=== PATIENT | male | born 1940 | race Caucasian/White ===

== ENCOUNTER 2019-06-28 14:36 | Inpatient (IN) | payer OTHER ==
[~2019-06-28] VITALS: Ht 182.9 cm; Wt 77.8 kg
--- NOTE | ~2019-06-28 | EMS ---
[facility] [address] [place] [address] EMS Patient Care Report Name: SAMANTA PEARSON Room #: 522B-B ADM IN M.R.#: [id number] Admission: 06/28/19 Attend Phys: Power Salgado DO Discharge: Date of : 38 Report #: [id number] THIS REPORT FOR: //name// Report Transmitted: 06/28/2019 20:45 EMS Care Summary [facility] MED-ACT Incident [id number] @ 06/28/2019 13:48 Incident Location [address] [place] [address] Patient SAMANTA PEARSON Male, 79 Years 1940 Patient Address [address] [place] [address] Patient History Dementia,Diabetes,Hypertension,Chronic Kidney Disease, Patient Allergies No known allergies, Patient Medications Valsartan, Levofloxacin, Atorvastatin, Aspirin, Glimepiride, Chief Complaint "He was agitated with staff" Disposition Transported No Lights/[place] Dispatch Reason Psychiatric Problem/Abnormal Behavior/Suicide Attempt Transported To [facility] Narrative Medic 1134 is dispatched for a C2 Behavioral stage for PD. Upon arrival pt is found standing outside of building talking with staff. Staff reports that this [facility] [address] [place] [address] EMS Patient Care Report Name: SAMANTA PEARSON Room #: 522B-B ADM IN M.R.#: [id number] Admission: 06/28/19 Attend Phys: Power Salgado DO Discharge: Date of : 39 Report #: [id number] is the pt's first day here and that he came around 1230 hrs today. Staff reports that the pt became aggressive toward them and that he "took an ipad and through it at out feet". Staff reports that they also talked with the pt's and that the reports that the pt started "treating her like a soldier". Staff reports that they have talked with the geriatric psychiatric unit at [facility] and that they have agreed to see the pt but that they have no safe means of transporting the pt there due to his potential to be violent and thus PD was called. Pt is standing with staff with arms crossed and is alert and tracking EMS. Pt gives avoidant answers to most questions and EMS and PD has conversation with pt about the need to go the hospital to be assessed. Pt is alert to person only and staff states that he has history of dementia. Staff member Emily Cerrato talks with pt and pt agrees to walk to unit and be transferred to [facility]. Due to pt report with Emily Cerrato she agrees to ride with EMS. Pt finally agrees to allow his VS to be assessed. BG not assessed due to worry of further upsetting pt. Biocom with no orders received. Pt is continuously monitored en route. Pt is transferred to ER bed via walking. Report to RN. Care transferred. Initial Vitals @14:22P: 121,R: 16,BP: 165/99,GCS: 14,SpO2: 94,Revised Trauma: 12, @14:27P: 121,R: 16,BP: 167/92,GCS: 14,SpO2: 95,Revised Trauma: 12, Assessments @13:56MENTAL:Confused,Person Oriented,SKIN:HEENT:LUNG SOUNDS:ABDOMEN:PELVIS//GI:EXTREMITIES:Left Arm: No Abnormalities,Right Arm: No Abnormalities,Left Leg: No Abnormalities,Right Leg: No Abnormalities,PULSE:NEURO: Impression Behavioral/psychiatric episode Procedures @13:56ALS AssessmentResponse: UnchangedSucceeded Timeline 13:47,Call Received 13:47,Psap Call 13:48,Dispatched 13:49,En Route 13:54,On Scene 13:55,At Patient 13:56,ALS Assessment,Response: UnchangedSucceeded, 14:21,Depart Scene 14:22,BP: 165/99 M,PULSE: 121,RR: 16 R,SPO2: 94 Ox,ETCO2: ,BG: ,PAIN: ,GCS: 14, 14:27,BP: 167/92 M,PULSE: 121,RR: 16 R,SPO2: 95 Ox,ETCO2: ,BG: ,PAIN: ,GCS: 14, 14:34,At Destination [address] [address] EMS Patient Care Report Name: SAMANTA PEARSON Room #: 522B-B ADM IN M.R.#: [id number] Admission: 06/28/19 Attend Phys: Power Salgado DO Discharge: Date of : 38 Report #: [id number] 14:47,Call Closed Disclaimer v1.1 Copyright 2019 [employer] This EMS Care Summary contains data elements from the applicable legal record (which may be displayed differently). It is designed to provide pertinent information for the following purposes: continuity of care, clinical quality, and state data reporting. The complete legal record is available to ED staff and administrators of the receiving hospital in [employer]'s Patient Tracker. All data is provided "as is."
[2019-06-28 14:36] VITALS: BP 166/84
[~2019-06-28 14:36] MED LIST: ALEVE220 M1; ASA81BEC PO; DIOVAN 80 MG TA80 M1 PO; LIPITOR10 MG PO; VITAMIN D1000 UNIT PO
[2019-06-28 15:34] LABS: URINE BILIRUBIN NEGATIVE (Negative); URINE BLOOD 3+ (Negative); URINE CLARITY CLEAR; URINE COLOR YELLOW; URINE GLUCOSE-RANDOM* 3+ (Negative); URINE KETONES NEGATIVE (Negative); URINE LEUKOCYTES-REFLEX NEGATIVE (Negative); URINE NITRITE-REFLEX NEGATIVE (Negative); URINE PROTEIN (DIPSTICK) 1+ (Negative); URINE UROBILINOGEN 0.2 E.U./dl (0.2-1.0)
[2019-06-28 15:41] LABS: BACTERIA-REFLEX None Seen /HPF (None Seen); CASTS None Seen /LPF (None Seen); CRYSTALS None Seen /LPF (None Seen); SQUAMOUS None Seen /LPF (0-3); URINE RBC 3-10 Few /HPF (0-2); URINE WBC-REFLEX 0-5 Rare /HPF (0-5)
[2019-06-28 15:47] LABS: HEMATOCRIT 44.3 % (42.0-52.0); HEMOGLOBIN 14.8 gm/dL (14.0-18.0); MCH 31.7 pg (26.0-34.0); MCHC 33.3 g/dL (28.0-37.0); MCV 95.1 fL (80.0-100.0); RBC 4.66 mil/uL (4.50-6.00); RDW 13.8 % (10.5-14.5); WBC 9.9 thou/uL (4.0-11.0)
[2019-06-28 15:56] LABS: CALCIUM 9.3 mg/dL (8.5-10.1); CREATININE 1.8 mg/dL (0.7-1.3); POTASSIUM 3.8 mmol/L (3.5-5.1)
[2019-06-28] MEDS ORDERED: AMARYL2 MG PO (16:00)
[2019-06-28 16:02] LABS: ALBUMIN 4.1 g/dL (3.4-5.0); TOTAL BILIRUBIN 0.5 mg/dL (<0.1-1.0); TOTAL PROTEIN 7.8 g/dL (6.4-8.2)
[2019-06-28 17:01] VITALS: BP 150/81
--- NOTE | 2019-06-28 18:44 | NUR ---
WHITE MALE ADMITTED FROM ER FROM [facility]. HE WAS LIVING WITH HIS AT HOME. SHE WAS OUT OF CONTROL WITH HIS , SHE COULD NOT HANDLE HIM ANY LONGER. SHE TOOK HIM TO THE PRISON THIS MORNING. THE NURSE WHO HAD HIM TODAY (CHEL FELIX) STATED HE WAS THROWING THINGS AT THE STAFF, SHE COULD NOT COMPLETE THE SKIN ASSESSMENT, NO ONE COULD COME CLOSE ENOUGH TO HIM TO DO ANYTHING. HE WAS A POOR HISTORIAN AND UNABLE TO ANSWER MANY OF THE QUESTIONS. 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 HE DOES NOT HAVE ANY SKIN ISSUES AT THIS TIME. HE BECAME AGITATED EASILY AND WALKED TO THE THE DOOR LAND KICKED IT BECAUSE IT WAS NOT UNLOCKED. DR. SWANSON ORDERED GEODON 15 MG IM. THIS WAS GIVEN TO HIM. SECURITY ARRIVED AND HELPED STAFF TAKE PT. TO HIS ROOM. AFTER ABOUT 15 MINUTES PT. WAS ABLE TO WALK ONTO THE UNIT AND BE CALM. SECURITY LEFT AT THAT TIME. HE WEARS GLASSES AND HEARING AIDES. HIS BELT, MONEY CLIP, SHOE LACES, WATCH, HAT. HE HAS A GOLD COLORED RING ON HIS LEFT HAND (WEDDING RING). THE MONEY AND HIS DRIVERS LICENSE WAS SENT TO SECURITY. HIS , KEARA, IS HIS DPOA. HE STATED HE GREW UP IN THE [facility], BUT HE DENIES GOING TO THAT EPISCOPALIAN ANY LONGER.
--- NOTE | 2019-06-29 06:07 | NUR ---
1909-Report received from day shift nurse. He was pacing the hallways rapidly with security present at this time, and had received an IM from nurse before report. On assessement he was talking with non-sensical words, wandered into others rooms for awhile, with a carney affect and non-compliant with redirections mostly. He was redirected further and continually then he did sit down in the day room and fell asleep in the chair. Thus the IM was effective. He talked in word salad later when he awakened, shown his room, noted with much confusion, and slept most of the night then. He awakened once and walked to the hallway waving at staff and started to wander into others rooms/lost, but was redirected by staff and went back to his room and asleep.
[2019-06-29 06:18] LABS: HEMATOCRIT 43.1 % (42.0-52.0); HEMOGLOBIN 14.4 gm/dL (14.0-18.0); MCH 31.9 pg (26.0-34.0); MCHC 33.3 g/dL (28.0-37.0); MCV 95.6 fL (80.0-100.0); RBC 4.51 mil/uL (4.50-6.00); RDW 13.7 % (10.5-14.5); WBC 8.1 thou/uL (4.0-11.0)
[2019-06-29 06:34] LABS: CREATININE 1.5 mg/dL (0.7-1.3); MAGNESIUM 1.8 mg/dL (1.8-2.4); PHOSPHORUS 3.2 mg/dL (2.5-4.9)
[2019-06-29 07:30] VITALS: BP 155/86
--- NOTE | 2019-06-29 07:45 | NUR ---
PT SITTING IN DINNING ROOM. PT ORIENTED TO SELF, HOSPITAL, NOT DATE OR MONTH. PT STATED HE WOULD BE GUESSING. PT LUNGS CEAR. PT UP AD MAIDA IN [place].
[2019-06-29 08:31] LABS: TSH 1.578 uIU/mL (0.358-3.740)
[2019-06-29 08:34] VITALS: BP 155/86
--- NOTE | 2019-06-29 10:00 | NUR ---
PT WAS UP AT DESK. PT WANTING TO TALK TO . PT ALREADY TALKED TO ON PHONE AND PT DENIES HE TALKED TO HER, SHE WAS UPSET ON THE PHONE.
--- NOTE | 2019-06-29 11:00 | NUR ---
PT REFUSED BLOOD SUGAR CHECK.
--- NOTE | 2019-06-29 12:18 | NUR ---
CHECKED BLOOD SUGAR. PT 281. PT REFUSED TO EAT LUNCH STATED HE WANTED TO HAVE LUNCH WITH . LET PT KNOW THAT ITS NOT VISITING HOUR TIME. PT WANTED THIS NURSE TO EAT HIS LUNCH.
--- NOTE | 2019-06-29 14:05 | NUR ---
PT RESISTING TAKING ZYPREXIA. PT PUT PILL IN CUP OF WATER.
--- NOTE | 2019-06-29 14:10 | NUR ---
PT RECIEVED ZYPREXIA 5MG IM TO RT DELTOID WITH SECURITY PRESENT.
--- NOTE | 2019-06-29 17:18 | NUR ---
PT ALLOWED THIS NURSE TO GIVE INSULIN. PT HAS BEEN WANDERING AROUND THE UNIT AND GOING INTO OTHERS ROOMS.
[2019-06-29 20:13] VITALS: BP 159/84
--- NOTE | 2019-06-29 23:25 | NUR ---
ASSUMED CARE OF THE PT AT 191 PM. ALERT ET ORIENTED X 1. WALKS WITH A STEADY GAIT. IS CONTINENT OF URINE. HEART RATE REGULAR, LUNGS CLEAR BILATERALLY, RESP., EVEN, AND UNLABORED. +BS HEARD IN ALL 4 QUADRANTS. ABD SOFT ET NONTENDOR. +PP BILATERALLY. THE PT KEEPS GOING INTO OTHER PEOPLE'S ROOMS THIS EVENING AND NIGHT. HE HAS BEEN REDIRECTED BACK TO HIS ROOM SEVERAL TIMES. MEDICATED WITH GEODON 10 MG IM TO THE LEFT DELTOID FOR AGITATION. TOOK ALL OF HIS HS MEDICATIONS. REMAINS ON 12 MINUTE CHECKS FOR HIS SAFETY.
[2019-06-30 00:07] LABS: GLYCOHEMOGLOBIN (HGB A1C) 8.9 % (4.8-5.6)
--- NOTE | 2019-06-30 01:04 | NUR ---
THE PT WAS WALKING INTO OTHER PT'S ROOMS AND SITTING ON EMPTY BEDS ACROSS FROM THE OTHER PT'S BED. REDIRECTED THE PT TO BED, CALLED THE N.P. GRATED CHEESE MAKER WHO ORDERED TRAZADONE 50 MG PO PRN AT HS, WHICH WAS GIVEN ORDERED. BED ALARM WAS PLACED, THE PT KEPT CALLING OUT FOR HIS EARLIER IN THE EVENING.
--- NOTE | 2019-06-30 08:47 | NUR ---
PATIENT AWOKEN AT 0730 TO ADMINISTER 0700 AM MEDICATIONS. AWOKEN, PLEASANTLY CONFUSED. ABLE TO AMBULATE TO BATHROOM INDEPENDENTLY. STATED HAD GOOD NIGHT. COMPLIANT WITH BLOOD SUGARS - 138 THIS MORNING. NO INSULIN NEEDED. CALM THIS MORNING. NO AGITATION OR AGGRESSION NOTED. RESPONSIVE SLOWLY TO QUESTIONS ADDRESSED TO HIM. DOZED OFF IN CHAIR AFTER BREAKFAST IN DINING [place].
[2019-06-30 12:10] LABS: HEMATOCRIT 45.1 % (42.0-52.0); HEMOGLOBIN 14.8 gm/dL (14.0-18.0); MCH 31.3 pg (26.0-34.0); MCHC 32.8 g/dL (28.0-37.0); MCV 95.6 fL (80.0-100.0); RBC 4.72 mil/uL (4.50-6.00); RDW 14.1 % (10.5-14.5); WBC 9.5 thou/uL (4.0-11.0)
[2019-06-30 12:37] LABS: CALCIUM 9.5 mg/dL (8.5-10.1); CREATININE 1.8 mg/dL (0.7-1.3); MAGNESIUM 1.9 mg/dL (1.8-2.4); PHOSPHORUS 2.6 mg/dL (2.5-4.9)
--- NOTE | 2019-06-30 13:39 | NUR ---
SW spoke with pt's spouse Silvia [phone] to complete SW assesment. [facility] is [facility] once [facility]. SW will send reports on Wednesday as updates and provided pt's spouse with support and encoaurged communication. [facility] [phone].
[2019-06-30 13:48] LABS: POTASSIUM 4.4 mmol/L (3.5-5.1)
[2019-07-01 02:52] VITALS: BP 159/84
--- NOTE | 2019-07-01 04:44 | NUR ---
PACING AND RESTLESS. WHEN REDIRECTED, HITS, GRABS STAFF AND BECOMES VIOLENT. @ 22:47, [id number] HCL 25 MG GIVEN X 1 . PATIENT NOT ALLOWED PENS, PENCILS FOR PHONE CALL TO D/T VERBAL AGRESSION WITH FAMILY. AMBULATES WITHOUT A A WALKER. PRN GIVEN FOR AGRESSION AND VIOLENCE WITH STAFF.
[2019-07-01 05:39] LABS: HEMATOCRIT 40.9 % (42.0-52.0); HEMOGLOBIN 13.5 gm/dL (14.0-18.0); MCH 31.3 pg (26.0-34.0); MCV 94.8 fL (80.0-100.0); RBC 4.31 mil/uL (4.50-6.00); RDW 13.9 % (10.5-14.5); WBC 7.2 thou/uL (4.0-11.0)
[2019-07-01 05:56] LABS: CREATININE 1.6 mg/dL (0.7-1.3); MAGNESIUM 1.9 mg/dL (1.8-2.4); PHOSPHORUS 4.1 mg/dL (2.5-4.9); POTASSIUM 3.5 mmol/L (3.5-5.1)
--- NOTE | 2019-07-01 06:48 | NUR ---
SLEPT 4.8
--- NOTE | 2019-07-01 09:55 | NUR ---
PATIENT WAS VERY SEDATED THIS MORNING - EVENTUALLY AROUSED AND CAME OUT FOR BREAKFAST. PATIENT APPEARED MORE CONFUSED AND LESS RESPONSIVE TO QUESTIONS ADDRESSED TO HIM. HAD TO BE REDIRECTED TO EAT HIS MEAL. MEDICATION COMPLIANT. BLOOD SUGAR WAS 145 NOT REQUIRING INSULIN. ADVISED STAFF NEEDED STOOL SPECIMEN FOR BLOOD OCCULT. LABS SHOWED DECREASE IN RBC - HGB AND HCT OVER LAST THREE DAYS. PATIENT AFFECT FLAT AND MOOD UNRESPONSIVE.
--- NOTE | 2019-07-01 12:01 | EKG ---
[place] [address] [facility] [place] [address] ELECTROCARDIOGRAM REPORT Name: SAMANTA PEARSON Room #: 52[facility] ADM IN M.R.#: [id number] Admission: 06/28/19 Attend Phys: Power Salgado DO Discharge: Date of : 38 Report #: [id number] THIS REPORT FOR: //name// [facility] Test Date: 2019-07-01 Test Time: 08:50:18 Pat Name: SAMANTA OCONNORERS Department: Room: [facility] Gender: M Mc Kay Machine Operator: PATRICK : 1940 Requested By: Yoana Landrum Order Number: [id number] MD: Tayo Ulrich Measurements Intervals [place] Rate: 82 P: 27 VT: 146 QRS: -28 QRSD: 113 T: 105 QT: 395 QTc: 462 Interpretive Statements Sinus rhythm LVH with IVCD and secondary repol abnrm Compared to ECG 03/12/2014 13:24:11 ST segment abnormality is now present Electronically Signed On 07-01-2019 12:00:54 CDT by Tayo Ulrich [email or web address] <ELECTRONICALLY SIGNED> By: Tayo Ulrich MD, [facility] 07/01/19 1200 0850 0850 Tayo Ulrich MD, [facility] /EPI
[2019-07-01 19:31] VITALS: BP 149/99
[2019-07-02 09:48] VITALS: BP 121/76
--- NOTE | 2019-07-02 10:57 | H ---
[facility] [place] [address] [address] [place] [address] HISTORY AND PHYSICAL Name: SAMANTA PEARSON Room #: 522B-B ADM IN M.R.#: [id number] Admission: 06/28/19 Attend Phys: Power Salgado DO Discharge: Date of : 39 Report #: [id number] THIS REPORT FOR: //name// CC: Power Salgado Cody Francis DATE OF SERVICE: 06/28/2019 INPATIENT PSYCHIATRIC EVALUATION ATTENDING PHYSICIAN: Power Salgado DO ELECTRIC SERVICEMAN: Yoana Landrum MD REASON FOR ADMISSION: Brought by EMS from failed admission at [facility] today. He has a history of Alzheimer's dementia and became combative disorderly with the placement. HISTORY OF PRESENT ILLNESS: This is an 79-year-old male who was admitted to the Senior Behavioral Health Unit through the Emergency Room at [facility]. The patient was medically cleared in the ED. The patient has known major neurocognitive disorder due to Alzheimer's disease. This was initially diagnosed in November 2016 by his primary care physician. The patient has significant dementia. It is delusional. Also, presents with a mixed type aphasia, so communication and reliability of the information remains highly questionable. He and his , Silvia who I spoke with, number is [phone]. The patient had become even more increasingly difficult over the last month, irritable, agitated, throwing objects as well such as electronics and cell phones. She did not feel safe living with him. He was frequently eloping. She was using his cell phone to track where he was going and then "coaxes him home" when he got worn out. At this point in time, the patient is essentially not performing any of his instrumental activities of daily living. The patient himself has no particular complaints, wants to leave. Denied having problems. Denied recent fall, head injury, facial droop or any neurological deficits. It should be noted that a number of the features of progressive Alzheimer disease can mimic that of strokes. I spoke with his over the telephone in the ED and had him on Senior Behavioral Health Unit. She is in favor of the admission. She states she has DPOA and has not had a chance to review the paperwork myself, but it was supposed to be received from [facility]. Nonetheless, I judged the patient's situation to be of an emergent nature, so we will sort out the details in the morning. The states she and her live in a condominium, is in gross denial of the disease. In addition, he has stage III chronic renal failure as well as diabetes mellitus, which is suboptimally controlled as his ER blood sugar was 399. [facility] [address] [place] [address] HISTORY AND PHYSICAL Name: SAMANTA PEARSON Room #: 522B-B ADM IN M.R.#: [id number] Admission: 06/28/19 Attend Phys: Power Salgado DO Discharge: Date of : 38 Report #: [id number] OCCUPATIONAL HISTORY: The patient retired 10 years ago. 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 EDUCATIONAL HISTORY: Bachelor's degree in [employer] in real estate. He has a biological son from a prior relationship, named Lázaro and cecy named Migue. Cecy who he is actually close with. The patient does not have a history of service. Did not have history of alcohol, tobacco or illicit drug use. PRIMARY CARE PHYSICIAN: Dr. Francis. He had previously been treated with Trulicity, because it was injectable, did not comply with it, currently treated with glimepiride and Tradjenta. FAMILY HISTORY: The patient's mother on her family history had dementia, in 1981, at that time according to the . MEDICAL HISTORY: Hypertension, diet-controlled diabetes mellitus. It is not diet controlled, it is poorly controlled with medication at present. Lithiasis, stones in his bladder ? he has refused treatment for. PAST SURGICAL HISTORY: Laparoscopic cholecystectomy. CURRENT MEDICATIONS: Valsartan 80 mg daily. We do not have this in formulary, so it was converted to losartan 50 mg daily. Atorvastatin 10 mg p.o. daily, glimepiride 2 mg p.o. daily, aspirin 81 mg p.o. daily, cholecalciferol or vitamin D3 ordered 5000 International Units daily. We are not going to give him any naproxen because of his renal disease. ALLERGIES: No known allergies. VITAL SIGNS: In the ER, BP 166/84, pulse ox 96%, pulse 116, respirations 14, weight 81.873 kilos. Physical exam grossly normal. LABORATORY DATA: Electrolytes; sodium 141, potassium 3.8, chloride 103, bicarbonate 25, BUN 22, creatinine 1.8, estimated GFR 36, glucose 399. Repeat glucose was 293, calcium 9.3, total bilirubin 0.5, AST 15, ALT 31, alkaline phosphatase 73, total protein 7.8, albumin 4.1. White count is 9.9, H and H 14.8 and 44.3, platelet count 224,000. UDS showed 1+ protein, 3+ blood, 3+ glucose. CT scan of the brain was done, which showed gross atrophy consistent with Alzheimer disease, no bleed or acute abnormalities noted read by Dr. Lam. Chest x-ray was negative. I went ahead and had the ED physician gave him 500 mL of normal saline bolus as well as insulin in the ER. I spoke with the . She is uncomfortable visiting with the patient at this point. I offered her family meeting later in the admission and she will think about that. MUSCULOSKELETAL: Normal gait and station. [facility] [address] [place] [address] HISTORY AND PHYSICAL Name: SAMANTA PEARSON Room #: 522B-B ADM IN [facility].#: [id number] Admission: 06/28/19 Attend Phys: Power Salgado, Discharge: Date of : 38 Report #: [id number] MENTAL STATUS EXAMINATION: This is a well-developed, fairly nourished white male, wearing glasses and hat. Attention limited. Concentration limited. Speech is normal rate. Thought process is linear, focused on her thought content, focused on her ideations that he needs to leave, not understanding the purpose of hospitalization. Memory known to be impaired. Insight impaired. Judgment impaired. Denied SI or HI. Some helplessness. Denied hopelessness. Denied suicidal intent, homicidal intent or plan though communication with him is difficult. REVIEW OF SYSTEMS: Cannot be comprehensively done due to his cognitive and speech impairment. FORMULATION: An 79-year-old male brought in for failed admission and combativeness at half-way. DIAGNOSES: Major neurocognitive disorder due to Alzheimer disease with behavioral disturbance. ADDITIONAL DIAGNOSES: 1. Diabetes mellitus, presently poor control. 2. Hypertension. 3. Lithiasis in the bladder. PLAN: The patient is admitted officially under Kellie Wong to the Senior Behavioral Health Unit at [facility]. A 50 mg IM Geodon injection was given emergently as he was trying to act out, repeatedly kicking the door, would not redirect. Public safety was called to take him back to his room. In addition noted losartan 50 mg p.o. daily, glimepiride 2 mg p.o. daily, vitamin D 5000 International Units p.o. daily, atorvastatin 10 mg p.o. daily, aspirin 81 mg p.o. daily. My colleague, Ms. Sandoval has ordered 25 mg chlorpromazine q. 4 hours p.r.n. IM, 25 mg q. 4 hours p.r.n. p.o. Other house PRNs were ordered. ESTIMATED LENGTH OF STAY: 10-14 days. Time spent on interview, review of records, coordination and care, acute management with him on the unit was at least 60 minutes. <ELECTRONICALLY SIGNED> By: Power Salgado DO 07/02/19 1057 26 37 Power Salgado DO /nt
--- NOTE | 2019-07-02 18:15 | NUR ---
0715 Pt. sitting at side of bed very lethargic leaning toward his right side. Garbled, rambling speech. Fiberglass Model Maker equal but weak. Pupils equal. Obeys commands after encouragement. Occassional slight jerking movements in extremities that stop when slight pressure applied. Ambulated to dining room with slow, shuffling gait with assistance. Took medications without diff but ate very little breakfast. Sitting upright in dining room with flat affect. No lispro insulin d/t BG of 93. Mouth very dry. Color pink with brisk capillary refill and palpable peripheral pulses. No s/o respiratory distress. Active bowel sounds over soft abdomen. called for update. 1000 Dr. Landrum here assessing patient. Becoming more awake but still quiet. Speech clearer. 1230 Fed lunch by GOVERNMENT RELATIONS MANAGER. More alert. Cooperative with care. No s/o distress. Obeying simple commands. 1430 Walking around unit and sitting in dining room. Much more alert. Dr. Salgado in unit. Notified of no BM since . Mag Citrate ordered. Patient took 3 sips and then poured it on himself. Ambulated back to room and changed clothes. Incontinent of urine in briefs. 1730 Dr. Landrum notied of BG per her request. Decreased glargine insulin to 7 units. Supposatory given per order. Up walking around unit without s/o distress.
[2019-07-02 20:09] VITALS: BP 116/66
--- NOTE | 2019-07-03 04:36 | NUR ---
PATIENT UP IN COMMON AREA THE FIRST OF THE SHIFT. DENIES PAIN. VERY HARD TO UNDERSTAND AT TIMES HE MUMBLES AND WORDS ARE GARBLED. UP WITH ASSIST TO BED. TRIED TO GET UP SEVERAL TIMES SETTING OFF THE ALARM. GAVE TRAZODONE TO HELP SLEEP. ACCUCHECK WAS 141, RECEIVED 6 UNITS OF LISPRO INSULIN. NO SIGNS OF AGGITATION. NEEDS REDIRECTED SEVERAL TIMES, EASILY REDIRECTED.
[2019-07-03 05:06] LABS: ABSOLUTE NEUTROPHILS 7.4 thou/uL (1.4-8.2); BASOPHILS 0.4 % (0.0-2.0); EOSINOPHILS 0.1 % (0.0-3.0); HEMATOCRIT 43.6 % (42.0-52.0); HEMOGLOBIN 14.4 gm/dL (14.0-18.0); LYMPHOCYTES 8.9 % (24.0-44.0); MCH 31.5 pg (26.0-34.0); MCV 95.3 fL (80.0-100.0); MONOCYTES 7.6 % (1.0-8.0); PLATELET COUNT 201 thou/uL (150-400); RBC 4.58 mil/uL (4.50-6.00); RDW 14.1 % (10.5-14.5); WBC 8.9 thou/uL (4.0-11.0)
[2019-07-03 05:34] LABS: ALBUMIN 3.5 g/dL (3.4-5.0); CALCIUM 9.6 mg/dL (8.5-10.1); CREATININE 1.6 mg/dL (0.7-1.3); MAGNESIUM 2.2 mg/dL (1.8-2.4); PHOSPHORUS 4.3 mg/dL (2.5-4.9); POTASSIUM 4.9 mmol/L (3.5-5.1); TOTAL BILIRUBIN 0.6 mg/dL (<0.1-1.0); TOTAL PROTEIN 6.8 g/dL (6.4-8.2)
[2019-07-03 07:47] VITALS: BP 125/70
--- NOTE | 2019-07-03 09:38 | NUR ---
0715: Report rec from [facility] shift, care assumed. [id number]: Ambulatory independently, wanders in halls, slightly resistant to re-direction, feeds self with stand by assist, takes meds whole w/o difficulty. Glucose finger stick 110, no SS Lispro Insulin indicated. Rec call from Silvia (), update given, plans to visit this a.m. New orders from Dr. Landrum noted.
--- NOTE | 2019-07-03 22:51 | NUR ---
ASSUMED CARE OF THE PT AT 1914 PM. ALERT ET ORIENTED X 1-2. THE PT HAS BEEN WALKING AROUND THE UNIT, WHEN THIS DATABASE ADMINISTRATION ASSOCIATE CAME ON DUTY, THE PT WAS STANDING IN A CHAIR, IT TOOK SEVERAL STAFF TO GET THE PT OUT OF THE CHAIR. CALLED THE PHYSICIAN PUBLIC HEALTH SANITARIAN, WHO MADE THE PT A 1;1 FOR HIS SAFETY. HEART RATE REGULAR, LUNGS CLEAR BILATERALLY, RESP., EVEN, AND UNLABORED. +BS HEARD IN ALL 4 QUADRANTS. ABD SOFT ET NONTENDOR. +PP BILATERALLY. UNABLE TO ASSESS IF HE HAS ANY DEPRESSION, OR ANXIETY AT THIS TIME.
--- NOTE | 2019-07-03 23:52 | NUR ---
THE PT WAS HITTING STAFF, CALLING STAFF NAMES, STATING, "YOU BITCH!" MEDICATED THE PT WITH 5MG OF ZYPREXA IM TO HIS RIGHT DELTOID. REMAINS ON 1:1 FOR HIS SAFETY.
[2019-07-04 05:28] LABS: CALCIUM 9.2 mg/dL (8.5-10.1); CREATININE 1.6 mg/dL (0.7-1.3)
[2019-07-04 05:43] LABS: POTASSIUM 3.8 mmol/L (3.5-5.1)
[2019-07-04 07:45] VITALS: BP 154/85
--- NOTE | 2019-07-04 07:45 | NUR ---
PT HAS 1:1 AT THIS TIME FOR SAFETY. PT RESTING IN BED WITH HEAD ELEVATED. NO BEHAVIORS SEEN.
--- NOTE | 2019-07-04 09:07 | NUR ---
PT SLEEPING AT THIS TIME. NO ISSUES.
[2019-07-04 09:48] VITALS: BP 154/85
--- NOTE | 2019-07-04 11:05 | NUR ---
PT UP NOW, CECE IS HERE FOR MEETING. PT IN BATHROOM WITH STAFF. PT INCON. OF URINE. PT WALKING SLOW.
--- NOTE | 2019-07-04 11:48 | NUR ---
PT SITTING IN DINNING ROOM. PT TOOK MEDS WITHOUT ISSUES. ENCOURAGE PT TO DRINK WATER.
--- NOTE | 2019-07-04 13:00 | NUR ---
PT LAYED DOWN AFTER LUNCH TO REST.
[2019-07-04 19:36] VITALS: BP 131/60
--- NOTE | 2019-07-05 05:02 | NUR ---
1914-Report received from day shift nurse and care assumed. Alexi was sitting in the day room with peers and staff, was quietly watching television also. He walked to his room afterwards. He was talked with and assessed in his room. He talked with non-sensical word structures mostly. Understood words he began saying were "I want to go", You're giving me too many meds. and shots", "It's poison". His medicines were offered and he said these sentences. He was talked with further about his treatment, his good progress, and he continued talking in a calm manner. He was compliant with his sliding scale insulin dose though. He talked with word salad mostly. He slept for several hours, awakened in the night and sat in his room chair after talking with staff, then went back to sleep. He awakened again and calmly asked for milk and water. He asked then "where is room 522" and shown to him and he returned again to sleep.
[2019-07-05 06:47] LABS: CALCIUM 9.4 mg/dL (8.5-10.1); CREATININE 1.6 mg/dL (0.7-1.3)
[2019-07-05 07:59] VITALS: BP 144/88
[2019-07-05 08:30] VITALS: BP 144/88
--- NOTE | 2019-07-05 08:30 | NUR ---
PT IN DINNING ROOM NOW. PT EATING BREAKFAST. PT ABLE TO FEED SELF. PT STATED HE FEELS LIKE HE IS GETTING BETTER. PT GAIT STEADIER. PT DENIES ANY ISSUES. PT NOT REFUSING MEDS THIS AM.
--- NOTE | 2019-07-05 14:11 | NUR ---
Date of Admission: 06/28/19 Date of Activity Therapy Assessment: 07/01/19 Activity Goal: Initial Goal: Weekly progress towards goal: Did not achieve goals Group participation level: Needs some assistance Behaviors observed: Patient has been present for 1/2 groups since admission d/t wandering and behaviors. Patient has been ordered to have a 1:1 sitter over the last few days and has been in bed sleeping much of the time. Patient has since become more alert and may be able to participate in one to one. Plan: No change towards goal. Provide one to one leisure opportunities as needed.
--- NOTE | 2019-07-05 15:47 | NUR ---
PT COMING UP TO DESK AND WANTING HIS SHOES BECAUSE HE SAID HE WALKS ALOT. PT ALSO WANTING HIS CAR KEYS SAYING HE IS READY TO DRIVE 30MILES.
--- NOTE | 2019-07-05 17:00 | NUR ---
PT EASILY RE-DIRECTED, PT UP AT NURSES DOOR AND WANTING TO TALK TO NURSE. PT ABLE TO RE-DIRECT TO DINNING ROOM FOR NURSE TO SPEAK WITH HIM. STATED THAT HE THOUGHT HE WAS IN [place].
[2019-07-05 19:16] VITALS: BP 158/76
[2019-07-05 19:51] VITALS: BP 152/69
[2019-07-05 21:38] VITALS: BP 129/75
--- NOTE | 2019-07-06 05:10 | NUR ---
1909-Report given and care assumed. Alexi was pacing the unit, asked staff repeating questions, confused about where his room was, said appropriate short sentences calmly and socializing with staff at the shift start. He sat in the day room and watched television and was medication compliant with pills whole with water. Accucheck = 110, and he had sliding scale insulin and an HS snack. At 2215 he started to being more restless and said he was going to go to [facility] [place], [place] and said "let's go". He tried locked doors and the exit door with force also. Redirections were tried to help re-direct him, he replied "No, I'm going" for example. He went into others rooms also. He was offered Trazodone prn for a sleep aide but he said "no, no". His exit-seeking and door banging continued and he began being defiant with redirections. Olanzapine 2.5 mg. IM was given at 2244. He became less agitated so it was effective. He was more directable and calmer talking with short sentences, and was having insomnia however at 0100 and he was given Trazodone 25 mg. po at that time. It was effective as he fell asleep and continued with bed alarm on. He awakened and toileted twice in the nite, urinating, and was appropriate and polite, and he returned to sleeping soundly again.
[2019-07-06 08:00] VITALS: BP 113/87
--- NOTE | 2019-07-06 10:41 | NUR ---
assumed pt care report received from nurse. pt found in room sitting at bedside , vs being takne. vs stable. on ra. accucheck. insulin given. subcut vit b12 shot given. pt tolorated well. no other complaint. pt participated in group. will continue to monitor
--- NOTE | 2019-07-06 12:30 | NUR ---
Nutrition: Assessed for early weekend LOS on [facility]. Met in day area, but pt hard of hearing. Admitted for cognitive disorder. On a renal diet, with PMH of CKD stage 3, DM II, and HTN. He is on phosphate binders (calcium acetate); last phos WNL on 07/03 at 4.3 mg/dl. Eating very well with 100% meal intake per the last 6 consecutive meals. BGs of 117, 328 mg/dl today. On 7 units Lantus and Humalog SSI. Pt denies any appetite or nutrition concerns on interview. He denies any wt loss. RD informed pt of healthy wt status; BMI 24.5. Given pt ordered on phos binders, will not recommend liberalizing diet at this time as potential for hx hyperphosphatemia in the past. Pt also voices he is very happy with and liking the food. Keep as low nutrition risk.
[2019-07-06 19:48] VITALS: BP 155/91
--- NOTE | 2019-07-07 02:09 | NUR ---
PATIENT HAS BEEN UP WANDERING AIMLESSLY THRU THE HALLWAYS WHEN I CAME ON SHIFT AT 1900. HE WAS SITTING ALONE IN THE DINING ROOM WHEN I APPROACHED HIM TO GIVE HIS HS MEDS AND INSULIN. AFTER EXPLAINING WHAT I WAS GIVING HIM, HE REFUSED TO TAKE THEM. HIS B/P WAS 155/91. HIS GLUCOSE WAS 199. I WAS ABLE TO GET THE INSULIN INJECTION OF 10UNITS LISPRO SQ GIVEN. PATIENT WAS STILL AGITATED AND THREW WATER AT THIS NURSE. ANOTHER NURSE LATER TRIED TO GIVE HIM HIS MEDS AND AGAIN HE REFUSED AND THREW WATER. DR MCKENNA CALLED AND OLANZAPINE 5MG IM ORDERED AND GIVEN WITH HELP OF 2 SECURITY OFFICERS. PATIENT STILL WOULD NOT STAY IN BED LONG AND HAS BEEN UP WALKING THE HALLS. HE DID SIT IN DINING ROOM FOR 30 MINUTES AND SLEEP. FINALLY PATIENT ALLOWED THIS NURSE TO TAKE HIM TO HIS ROOM AND ASSIST HIM GETTING INTO BED. HE WAS AT THE POINT THAT HE COULD NOT HARDLY TALK, HE WAS SO SLEEPY. PATIENT ASLEEP AT THIS TIME. BED ALARM ON AND BED IN LOW POSITION. PATIENT DID SWING AND HIT THIS NURSE IN THE ABDOMEN AT ONE POINT WHILE TRYING TO REDIRECT HIM. PATIENT STILL HAS WORD SALAD GOING WHEN HE TRIES TO TALK OR HAVE A CONVERSATION. HE IS A/0 X 1. HE CONTINUES TO WANDER INTO OTHER PATIENT'S ROOMS ALSO. WILL CONTINUE TO MONITOR.
[2019-07-07 02:20] VITALS: BP 155/91
[2019-07-07 07:40] VITALS: BP 124/53
--- NOTE | 2019-07-07 15:12 | NUR ---
PATIENT ALERT AND ORIENTED TO SELF AND IN DAY ROOM MOST OF THE DAY. SPOUSE VISITED THIS AM DURING VISITING HOURS. PATIENT UPSET THAT HE CAN'T BE DISCHARGED TODAY AND WILL PACE HALLWAYS AND HAS VERY SHORT ATTENTION SPAN. PATIENT ENCOURAGED TO READ NEWSPAPER AND PICKS UP PAPER, THEN PUTS IN BACK ON TABLE. PATIENT WILL SIT AND NAP WHILE IN DAYROOM. PATIENT WILL TAKE CRUSHED MEDS IN PUDDING OR APPLESAUCE.
--- NOTE | 2019-07-07 19:32 | NUR ---
PATIENT REFUSED HIS EVENING MEDS AND WAS GIVEN IM MEDS PER DR SWANSON. PATIENT PACING AND AGITATED AND GOING TO DOORS ATTEMPTING TO LEAVE UNIT.
[2019-07-07 20:00] VITALS: BP 148/81
--- NOTE | 2019-07-07 22:45 | NUR ---
1899-Report received from day shift staff. Alexi was given IM medications just prior to report. He continued wandering the unit and into other rooms and pushing on the exit door handles. He was aggressive with staff trying to redirect the pt. as he swung at staff repeatively. He was restless and anxious and said No, when asked if he wanted to go into his room. He refused his HS medications when offered them, shaking his head No and turning away. He was observed responding to internal stimuli also picking at items in the air and seen mumbling to unseen others also. Redirections were tried but he continued aggression so he was given Olanzapine 2.5 mg. IM at 1944. At 2229 it was effective and he was tired after sitting in the day room, and was cooperative with assistance going to his room/bed and lying down and then went to sleep then without aggression. He was compliant with the sliding scale insulin at for blood suger reading = 144. No c.o. pain.
--- NOTE | 2019-07-08 06:30 | NUR ---
Alexi slept very soundly this nite snoring soflty after going to sleep, was awakened to change wet linens and brief in the nite however. He was calm, and groggy.
[2019-07-08 09:16] VITALS: BP 146/84
--- NOTE | 2019-07-08 18:26 | NUR ---
CONFUSED AND DIFFICULT TO UNDERSTAND SPEECH. FAIR APPETITE FOR MEALS. ATE ALL MEALS IN DINNING ROOM. FLAT AFFECT. DOES NOT VISIT WITH OTHERS IN DINNING ROOM. SLOW STEADY GAIT. TOOK MEDICATIONS WHOLE WITHOUT DIFFICULTY.
[2019-07-08 19:40] VITALS: BP 146/84
--- NOTE | 2019-07-08 21:43 | NUR ---
ASSUMED CARE OF THE PT AT 1915PM. ALERT ET ORIENTED X 2. THE PT WALKS WITH A STEADY GAIT. HEART RATE REGULAR, LUNGS CLEAR BILATERALLY, RESP., EVEN, AND UNLABORED. +BS HEARD IN ALL 4 QUADRANTS. ABD SOFT ET NONTENDOR. DENIES PAIN AT THIS TIME. THE PT WAS WALKING AROUND INTO DIFFERENT ROOMS. THE PT TOOK HIS HS MEDICATIONS EARLIER IN THE SHIFT. THE PT WAS GIVEN ZYPREXA 2.5 MG IM GIVEN IN HIS LEFT DELTOID. REMAINS ON 12 MINUTE CHECKS FOR HIS SAFETY.
--- NOTE | 2019-07-09 01:24 | NUR ---
THE PT KEPT TRYING TO GET OUT OF BED, ASSISTED THE PT TO THE DAYROOM, MEDICATED THE PT WITH PRN TRAZADONE, HE FELL ASLEEP IN THE DAYROOM IN THE RECLINING CHAIR. REMAINS ON 12 MINUTE CHECKS FOR HIS SAFETY.
[2019-07-09 07:10] VITALS: BP 117/67
--- NOTE | 2019-07-09 12:40 | NUR ---
0700: Report rec from noc shift, care assumed. [id number]: Ambulatory independently to DR, gait slow/steady. Alert, oriented to name only, cooperative with staff at this time, easily re-directs and follows instructions. Feeds self, appetite good, takes meds and insulin w/o difficulty. Slept through 0900 therapy group, easily arouses to verbal and tactile stimuli. [id number]: here for visit, update given.
[2019-07-09 19:31] VITALS: BP 131/55
--- NOTE | 2019-07-09 23:03 | NUR ---
ASSUMED CARE OF THE PT AT 191 PM. ALERT TO NAME ONLY, WALKS WITH A STEADY GAIT. HEART RATE REGULAR, LUNG CLEAR BILATERALLY. RESP., EVEN, AND UNLABORED. +BS HEARD IN ALL 4 QUADRANTS. ABD SOFT ET FLAT TOO TOUCH. THE PT IS CONTINENT OF URINE. WEARS A BRIEF DURING THE DAY. THE PT HAD VOIDED IN THE DAYROOM. THE PT WAS CLEANED UP AND WAS TEMPTED TO BE REDIRECTED TO THE CHAIR IN THE DAYROOM. HE SLEPT IN IT FOR A FEW HOURS, THEN HE GOT UP AND WAS WANDERING INTO OTHER PT'S ROOMS. THE PT EVENTUALLY WENT TO HIS ROOM AND WENT TO BED. REMAINS ON 12 MINUTE CHECKS FOR THE PT'S SAFETY.
[2019-07-10 09:03] LABS: CALCIUM 8.8 mg/dL (8.5-10.1); CREATININE 1.6 mg/dL (0.7-1.3)
[2019-07-10 09:38] VITALS: BP 112/70
--- NOTE | 2019-07-10 11:16 | NUR ---
Family meeting scheduled for 10:00 on July 13
--- NOTE | 2019-07-10 14:53 | NUR ---
0710: Report rec from noc shift, care assumed. [id number]: Ambulatory independently to DR, sitting quietly at DR table, alert, oreinted to name only. Feeds self, appetite good, takes meds whole w/o difficulty, compliant with tx and medication plan. Mood is quiet, pleasant, cooperative with staff. Slept through 0900 therapy group. 1100: Silvia here for visit, pt visits appropriately, pt calm and cooperative. [id number]: Pt sitting quietly in DR, visits with other pts, no aggression noted. 1500: Pt observed pacing in christopher, and to nurses desk, no aggressive behavior noted.
[2019-07-10 20:15] VITALS: BP 153/77
[2019-07-10 20:47] VITALS: BP 153/77
--- NOTE | 2019-07-11 00:33 | NUR ---
PATIENT APPEARS CALMER TONITE. HE CONTINUES TO WALK AROUND THE UNIT AND PACE. HE HAS BONDED WITH ANOTHER MALE PATIENT AND THE TWO UNDERSTAND EACH OTHER THRU THEIR DEMENTIA. THEY BOTH THINK THEY ARE WORKING HERE AND HELPING OUT IN THEIR MINDS. PATIENT TOOK HIS MEDS TONITE WITHOUT A FIGHT. HE ATE ICECREAM WITH THEM TO HELP THE WHOLE ONES GO DOWN. HIS GLUCOSE CHECK WAS 98 SO NO REGULAR INSULIN WAS NEEDED AT HS. PATIENT HAS BEEN PLEASANT. HE STILL HAS EXPRESSIVE APHASIA BUT USUALLY HE CAN COMMUNICATE HIS NEED TO US IN A WAY WE UNDERSTAND. PATIENT IS CONTINENT OF BOWEL AND BLADDER. HE DOES WEAR DISPOSABLE BRIEFS. HE SOMETIMES DOESN'T MAKE IT TO THE BATHROOM IN TIME. PATIENT SLEPT IN THE DINING ROOM FOR A BIT AND I WOKE HIM TO SHOW HIM TO HIS ROOM. HE IS SLEEPING SOUNDLY AND BED IS IN LOW POSITION AND BED ALARM IS ON.
--- NOTE | 2019-07-11 08:27 | HC ---
[facility] [place] [address] CONSULTATION Name: MICHELSAMANTA Shala Room #: 522B-B ADM IN M.R.#: [id number] Admission: 06/28/19 Attend Phys: Power Salgado DO Discharge: Date of : 38 Report #: [id number] THIS REPORT FOR: //name// CC: Power Francis DATE OF SERVICE: 06/28/2019 MEDICAL CONSULT CONSULT REQUESTED BY: Dr. Power Salgado, and geropsychiatrist PRIMARY CARE PHYSICIAN: Dr. Cody Francis. REASON FOR CONSULTATION: Medical management for diabetes, hypertension and chronic kidney disease stage 3. HISTORY OF PRESENT ILLNESS: The patient is a very pleasant 79-year-old lean and thin gentleman who has been ambulating in the unit very restless and wants to leave as he informs me that he does not like to be here, so wants me to open the door. Informed the patient that Dr. Salgado is the incharge and he can discuss it with him. The patient seems to process it reasonably okay, informs me that he is very healthy. He does not have any complaints and he is perfectly fine. REVIEW OF SYSTEMS: Completely negative. The patient does complain of polydipsia and polyuria. He informs me that he always has dry mouth and he is extremely thirsty, but otherwise does not have any other complaints. Denies any chest pain, abdominal pain, nausea, vomiting, diarrhea, hematochezia, melena or constipation. The patient denies any shortness of breath or dizziness or lightheadedness. PAST MEDICAL HISTORY: Significant for: 1. Diabetes mellitus type 2. 2. Hypertension. 3. Hyperlipidemia. 4. Chronic kidney disease stage 3. 5. Cognitive impairment and dementia. 6. Chronic constipation. 7. History of bladder calculus. 8. History of benign colonic polyps. 9. Chronic hematuria. 10. Insomnia. 11. Recurrent urinary tract infections. 12. Benign prostatic hypertrophy. PAST SURGICAL HISTORY: [facility] [address] [place] [address] CONSULTATION Name: SAMANTA PEARSON Room #: 522B-B [facility].#: [id number] Admission: 06/28/19 Attend Phys: Power Salgado DO Discharge: Date of : 38 Report #: [id number] 1. The patient has had cholecystectomy. 2. Colonoscopy in 12/2012. FAMILY HISTORY: Positive for hypertension and CVA. SOCIAL HISTORY: The patient denies any tobacco or alcohol. He informs me he is a lifetime nonsmoker. He does drink a lot of caffeine. He is and currently has been in a senior care. The patient's emergency contact is Silvia, his current [phone]. ALLERGIES: The patient has no known drug allergies. CURRENT MEDICATIONS: Losartan, Lipitor, Amaryl, aspirin, Namenda. REVIEW OF SYSTEMS: Please see HPI above. PHYSICAL EXAMINATION: VITAL SIGNS: Temperature, the patient is afebrile; heart rate 116; respiration 14; blood pressure 166/84; pulse oximetry 96% on room air when he presented to the ER. At the time of examination, the patient had heart rate of 79, respirations 15, blood pressure 150/81, pulse oximetry 97% on room air. GENERAL: Alert, oriented to time, place and person, very pleasant, lean and thin, tall 79-year-old gentleman who appears his stated age and is restless and anxious. HEENT: Normocephalic, atraumatic. Pupils equally round, reactive to light. Conjunctivae clear. Sclerae nonicteric. Oropharynx clear. Mucous membranes moist. NECK: Supple, no JVD, no lymphadenopathy. HEART: S1, S2 regular. No murmur, no S3, no S4. LUNGS: Clear to auscultation bilaterally without any crackles or wheezes. ABDOMEN: Soft, nontender, nondistended, normal active bowel sounds. EXTREMITIES: No edema. NEUROLOGIC: Completely nonfocal. LABORATORY DATA AND X-RAYS: WBC 9.9, hemoglobin 14.8, hematocrit 44.3, platelets 224 and the differential is within normal limits. Chemistry: Sodium 141, potassium 3.8, chloride 103, bicarbonate 25, BUN 22, creatinine 1.8 and GFR 36. Urinalysis with 3+ blood, 1+ protein, ketone negative, and nitrite negative, leukocyte esterase negative, large glucose. CT scan of the head was done in the Emergency Room and no acute process and chest x-ray showed no acute process. ASSESSMENT AND PLAN: 1. Dementia with agitation. 2. Depression. 3. Diabetes mellitus type 2. [address] [address] CONSULTATION Name: SAMANTA PEARSON Room #: 522B-B ADM IN ..#: [id number] Admission: 06/28/19 Attend Phys: Power Salgado, DO Discharge: Date of : 38 Report #: [id number] 4. Hypertension. 5. Chronic kidney disease stage 3. 6. Hyperlipidemia. 7. The patient has advanced directives. 8. DNR. 9. DVT prophylaxis with heparin. GI prophylaxis with Pepcid renal dose. PLAN: 1. The patient has been admitted to the Geropsych Unit for dementia with agitation. We will go ahead and do Accu-Cheks q.i.d. a.c. and at bedtime and at [id number] dose sliding scale insulin as sugars have been high on admission. 2. UA without any infection. We will go ahead and check urine postvoid residual one time as the patient does have a history of benign prostatic hypertrophy. 3. Heparin for DVT prophylaxis and renal dose Pepcid. 4. Resume his home medication of the thyroid. 5. Chronic kidney disease stage 3. We will avoid any nephrotoxic agents. 6. Hypertension. We will write for hydralazine p.r.n. in addition to starting his home medications. Plan of care was discussed with the patient, RN as well as Dr. Salgado. <ELECTRONICALLY SIGNED> By: Yoana Landrum MD 07/11/19 0827 [id number] Yoana Landrum MD /nt
[2019-07-11 12:37] VITALS: BP 127/72
--- NOTE | 2019-07-11 12:48 | NUR ---
ASSUMED CARE AT 0700 THIS MORNING. PT. CONTINUES TO BE CONFUSED. HE IS ORIENTED TIMES 1-2. HE SITS ON THE PERIPHERAL OF GROUP BUT UNABLE TO PARTICIPATE. IS EATING ON THE UNIT. TOOK HIS MEDS WHOLE WITHOUT DIFFICULTY. HE IS NOT VERBALIZING SI/HI OR AVH TODAY. WAS HERE AT 10:45 THIS MORNING. HE WAS SMILING WHEN HE SAW HER AND SAT NEXT TO HER THE WHOLE TIME SHE WAS HERE.
--- NOTE | 2019-07-11 14:50 | NUR ---
FARM MACHINERY ENGINE MECHANIC arrived to day room after hearing the panic alarm sound. MARINE OILER informed FARM MACHINERY ENGINE MECHANIC that this patient had become agitated and began to pull alarm. She was unable to direct him for a period of time, but patient eventually relocated from area. FARM MACHINERY ENGINE MECHANIC then witnessed patient approaching the panic alarm once again. MARINE OILER blocked alarm while FARM MACHINERY ENGINE MECHANIC attempted to verbal redirect patient away. Patient stated became increasingly agitated, verbalizing that he needed to, "get to the damn alarm", as he used force to push MARINE OILER away with one arm, grabbing wrist of FARM MACHINERY ENGINE MECHANIC with another. Patient then grabbed ahold of alarm and removed entire cover and screws from the wall. MARINE OILER able to successfully remove cover and screws from patient. At that time RN and Dr. Salgado removed patient from day room and assisted him to his bedroom.
--- NOTE | 2019-07-12 03:59 | NUR ---
1909-Report received from day shift nurse and care assumed. Alexi was walking around the unit hallways and day area, with head down mostly, notably responding to hallucinations at times. He was compliant with VS and accucheck and was sitting down in the day area. His medications were taken to him and he had word salad sentences, understood was him saying "I had a DrPenny and this and so on". He was given his HS medicaitons and he threw them acroos the room. He had given information then that the ordered an IM backup if he refused the Zyprexa medication. The medication Zyprexa was again brought to him and exxplained the reality of the situation and talked with him about current events. He was noted walking into others rooms then. The IM backup ordered of Zyprexa 5 mg. IM was given to him at 2052. He later was walked to his bed and has since slept well, awakening once thus far and needed to urinate, then returned to bed and he was thanking staff.
[2019-07-12 08:57] VITALS: BP 117/60
[2019-07-12 10:05] VITALS: BP 117/60
--- NOTE | 2019-07-12 10:34 | NUR ---
ASSUMED CARE AT 0700 THIS MORNING. PT. ON THE UNIT, DRESSED. ATE WELL FOR BREAKFAST. ASKED IF HE COULD REFUSE MEDICATIONS. THIS RN STATED HE COULD BUT THE HAS ORDERED AN IM IF HE REFUSES. HE THEN TOOK HIS MEDICATIONS WITHOUT PROBLEMS. HE SAT ON THE PERIPHERY OF THE MORNING GROUP, BUT NOTED LITTLE TO NO PARTICIPATION FROM HIM. NO ACTING OUT BEHAVIORS NOTED SO FAR THIS MORNING. NO NOTICE OF SI/HI OR AVH THIS MORNING. ORIENTED TIMES 1 OR 2.
--- NOTE | 2019-07-12 14:58 | NUR ---
Date of Admission: 06/28/19 Date of Activity Therapy Assessment: 07/01/19 Activity Goal: Decrease restlessness and wandering Initial Goal: 1 Group activity/day Weekly progress towards goal: On track Group participation level: Minimal Behaviors observed: Patient's participation varies based on attention level. Patient wanders frequently and is hard to redirect/refocus. When patient is present in groups he participates minimally if at all. Plan: No change towards goal
[2019-07-12 19:53] VITALS: BP 136/70
[2019-07-12 22:26] VITALS: BP 136/70
--- NOTE | 2019-07-13 05:14 | NUR ---
ASSESSEMNT: PT REMAIN ALERT AND ORIENT TIMES TWO. PT REMAIN CALM THIS SHIFT AND APPEARED TO WANT TO BE COOPERATIVE. DID NOT RECEIVE IM ZYPREXIA. OCCULT STOOL PENDING. VSS.. WILL CONTINUE TO MONITOR. WILL CONTINUE TO MONITOR. SLOW PROGRESSS TOWARDS DC GOALS.
[2019-07-13 09:27] VITALS: BP 112/74
--- NOTE | 2019-07-13 11:01 | NUR ---
Nutrition followup: Pt continues on renal diet with 75-100% of meals/snacks documented on renal diet. Labs/meds noted. A1C 8.9, BG 130-189. Noted initially on carb controlled diet order but not at present. May consider adding carb controlled. Pt also on mechanical chopped diet for mild dysphagia. Not oriented for interview but nsg reports no nutrition concerns. Did note most recent weight reflects an 8# decline from admit if accurate. REC re-weight pt. Leave as low nutrition risk for now.
--- NOTE | 2019-07-13 18:14 | NUR ---
ASSUMED CARE OF PATIENT AT 0715, PATIENT ALERT CONFUSION, EASILY REDIRECTED. DENIES PAIN THIS SHIFT. AMUBLATES IN HALLWAYS W/O ASSISTANCE. BLOOD SUGAR MONITORING ORDERED, INSULIN GIVEN ORDERED. PATIENT TOOK ALL MEDICATIONS THIS SHIFT. NO BEHAVIOR ISSUES THIS SHIFT, CALM ALL SHIFT. WILL CONTINUE TO MONITOR.
[2019-07-13 19:26] VITALS: BP 117/67
--- NOTE | 2019-07-14 02:54 | NUR ---
1909-Report received from day shift nurse and care assumed. The pt. was walking around the day area slowly and sitting as well. He had a snack and was compliant with Vital signs and accucheck. He was taken his pills to him and he saw them all in the cup and looked at them and said "I'll take the white ones". This was after he was explained what they were and what they were given for. The 2 little "white ones" were the Olanzapine medication (which had an IM backup order as he knew already). He was polite and calm at the time, with good eye contact and communicted with insurance underwriter with word salmarivel but calmly. He later asked for a snack and was given one. He asked for his coat and shoes.
--- NOTE | 2019-07-14 03:32 | NUR ---
Alexi walked around the hallway at times in the late evening, was not sleepy, and was redirected easily when went into others room a couple times. He was taken to his room and he said "It's dark in there" and "I don't want to go in there". He was taken Trazodone 25 mg. po and explained it was a sleeping pill, and he thought about it and then took it whole with water. It was later effective. In the night he awakened at about 0300 and needed to urinate which he did in the bathroom and he returned and was calm and polite returning to sleep.
[2019-07-14 10:55] VITALS: BP 115/70
[2019-07-14 12:53] VITALS: BP 115/70
--- NOTE | 2019-07-14 13:00 | NUR ---
ASSUMED CARE AT 0700 THIS MORNING. PT. SITTING IN CHAIR QUIET AND CALMLY. HE TOOK HIS MEDS WITHOUT QUESTIONS. HAS BEEN PLEASANT SO FAR THIS SHIFT. ATTENDED GROUPS BUT NOT NOTICING A LOT OF PARTICIPATION. HE TOOK HIS MEDICATIONS WITHOUT DIFFICULTY. NO PROBLEMS NOTED OR VOICED. HAVE NOT NOTICED ACTING OUT BEHAVIORS TODAY OF THIS WRITING. NO NOTICE OF SI/HI OR AVH NOTED TODAY TO THIS POINT.
--- NOTE | 2019-07-14 22:34 | NUR ---
1909-Report received from day shift nurse and care assumed. Alexi was pacing the hallway and day christopher, was talking with male peer at times as well, with some understandable short statements to peer but mostly word salad. He was calm, but pacing. He was medication compliant with his HS medications after assessing him and talking with him. He continued being restless. He began wanting to go into the nurses station repeatedly and blocking the door. Security came and tried talking wit him but he continued clenching his fists at all staff and being defiant/defensive/agressive comments back to staff talking with him/trying to redirect him, as he as well walked into others room. He told staff when he was blocking the doors,even the exit door at time, leave me alone and moved his mouth as if trying to bite. called and stat orders given and the pt. was given Haldol 5 mg. IM and Ativan 1 mg. IM x 1 now, at 2245.
--- NOTE | 2019-07-14 22:53 | NUR ---
The IM's were effective, the pt. began being calm soon, sat in chairs, walked to the hallway and urinated on the hallway floor, was getting more sleepy soon and was assisted to his room and at about 2230 was fully asleep not restless in his bed any longer, with bed alarm set.
[2019-07-15 09:31] VITALS: BP 129/73
--- NOTE | 2019-07-15 14:08 | NUR ---
PATIENT SLEEPY HIS AM. FOUND STANDING IN ROOM IN FRONT OF TOILET. OFFERED ASSISTANCE BUT UNABLE TO UNRINATE. PATIENT UP TO DAY ROOM FOR BREAKFAST AND LUNCH. HE APPERS TIRED. PATIENT TOOK MEDS WHOLE WITH WATER, BUT NEEDED APPLESAUCE TO HELP WITH SWALLOWING THE MEDS. SPOUSE IN DAY ROOM DURING VISITING HOURS AND ASKED ABOUT HIS STATUS. PATIENT SLEPT ABOUT 5.5 HOURS.
--- NOTE | 2019-07-15 15:19 | NUR ---
SW called nad left a VM at [facility] [phone] about possible d/c Wednesday and requesting that they do an eval if needed. Will send updates on Wednesday [phone].
[2019-07-15 20:06] VITALS: BP 149/82
[2019-07-15 20:47] VITALS: BP 149/82
--- NOTE | 2019-07-16 02:45 | NUR ---
ASSESSMENT: PT REMAIN ALERT AND ORIENT TIMES ONE. REMAINED CALM AND COOPERATIVE WITH MEDS TAKING AND FOLLOWING SIMPLE COMMANDS. DID NOT STAND AROUND THE NURSES STATION BUT WAS FOUND COMING OUT OF OTHER PPL'S ROOMS TWICE. EASY TO REDIRECT TO PT'S OWN ROOM. PT CLOSED AND LOCKED THE DOOR UPON ENTERING HIS ROOM. WAS REMINDED THAT WAS NOT ALLOWED IN WHICH HE STATED THAT HE UNDERSTOOD. PT GOT IN BED AND WENT TO SLEEP. PT TOOK ALL OF HIS HS MEDS WITHOUT DIFFICULITY. VSS, AFEBRILE. PENDING OCCULT STOOL FROM 3-4 DAYS AGO. LAST BM CHARTED WAS 07/12/19. MINIMAL PACING NOTED EARLIER IN THE SHIFT. SLOW PROGRESS TOWARDS DC GOALS, WILL CONTINUE TO MONITOR.
--- NOTE | 2019-07-16 08:07 | NUR ---
ASSUMED CARE OF PATIENT FROM FACILITIES MAINTENANCE TECHNICIAN. ASSESSED PATIENT THIS AM. PATIENT CALM, CONTENT AND PLEASANT. PATIENT STATED THAT HE HAS A BOWEL MOVEMENT DAILY. PATIENT STATED THAT HE HAD NO PAIN THIS AM. PATIENT DID NOT STATE ANY GOALS THIS AM. BREATH SOUNDS CLEAR, BOWEL SOUNDS ACTIVE, HEART REGULAR S1,S2.
[2019-07-16 10:49] VITALS: BP 156/82
[2019-07-16 15:01] VITALS: BP 156/82
[2019-07-16 20:09] VITALS: BP 143/88
--- NOTE | 2019-07-16 22:30 | NUR ---
ASSUMED CARE OF THE PT AT 191 PM. ALERT ET ORIENTED X 1. WALKS WITH A STEADY GAIT. HE TOOK HIS HS MEDICATIONS WITHOUT ANY DIFFICULTY. HE CONTINUES TO TRY AND GET INTO OTHER PT'S ROOM, HE CAN BE REDIRECTED AFTER A FEW ATTEMPTS. HE WENT TO BED AFTER GOING TO THE BATHROOM. REMAINS ON 12 MINUTE CHECKS FOR HIS SAFETY.
--- NOTE | 2019-07-17 03:42 | NUR ---
THE PT GOT UP DURING THE NIGHT TO USE THE BATHROOM, VOIDING QUITE A LOT, THEN WITH THE PT WENT BACK TO BED.
[2019-07-17 07:56] VITALS: BP 114/73
--- NOTE | 2019-07-17 12:16 | NUR ---
Followup: Remains on renal diet with swallow precautions as indicated. Wt initially dropped 8 lb, now back up 2 lb. Eating 75-100% meals. Does have some elevated BG levels 160-201, hospitalist managing. Will add carb control to diet order to promote more optimal control. Remains low nutrition risk
--- NOTE | 2019-07-17 16:14 | NUR ---
PATIENT ORIENTED TO SELF AND COOPERATIVE WITH POC OF CARE AMBULATING IN HALLWAYS INDEPENDENTLY AND TAKING HIMSELF TO BATHROOM HOWEVER CONTIUES TO INADVERTENTLY GO INTO WRONG ROOM. CHEL FROM [facility], IN [place], [place] VISITING PSYCH UNIT INQUIRING ABOUT THIS PATIENTS PROGRESS AND IF THERE WERE ANY FURTHER OUTBURSTS. PATIENT SPOUSE, VISITING PATIENT DURING AM VISITING HOURS AND SEEN BEING APPROPRIATELY AFFECTIONATE TOWARDS PATIENT. SPOUSE INQUIRED ABOUT PATIENT'S NIGHT. PATIENT SLEPT 9.2 HOURS AND CAN OFTEN BE SEEN NAPPING IN DAY ROOM. PATIENT DOES NOT INTERACT WITH OTHER STAFF OR PATIENTS.
--- NOTE | 2019-07-17 17:45 | NUR ---
SW called [facility] times and when they called back, they advised that they did not think they would be able to meet his needs. SW asked them to call spouse and to assist with the new placement. SIERRA later called pt's spouse and she [facility]. SIERRA reported that this would be done on the next business day.
[2019-07-17 19:04] LABS: ABSOLUTE NEUTROPHILS 8.6 thou/uL (1.4-8.2); BASOPHILS 0.6 % (0.0-2.0); HEMATOCRIT 42.2 % (42.0-52.0); HEMOGLOBIN 13.9 gm/dL (14.0-18.0); MCH 31.7 pg (26.0-34.0); MCHC 33.1 g/dL (28.0-37.0); MCV 95.9 fL (80.0-100.0); MONOCYTES 9.7 % (1.0-8.0); PLATELET COUNT 255 thou/uL (150-400); POLYS 79.7 % (36.0-66.0); RDW 13.8 % (10.5-14.5); WBC 10.8 thou/uL (4.0-11.0)
[2019-07-17 19:24] LABS: ALBUMIN 3.3 g/dL (3.4-5.0); CALCIUM 9.3 mg/dL (8.5-10.1); CREATININE 1.7 mg/dL (0.7-1.3); MAGNESIUM 1.9 mg/dL (1.8-2.4); POTASSIUM 3.5 mmol/L (3.5-5.1); TOTAL BILIRUBIN 0.3 mg/dL (<0.1-1.0); TOTAL PROTEIN 7.2 g/dL (6.4-8.2)
[2019-07-17 19:45] VITALS: BP 110/60
--- NOTE | 2019-07-17 22:40 | NUR ---
ASSUMED CARE OF THE PT AT 1915. THE PT WAS IN THE DAYROOM WHEN THIS SALES OFFICE MANAGER FIRST CAME ON DUTY, HE WAS TRYING TO PUSH ONE OF THE OTHER PTS AROUND IN HER WHEELCHAIR IN THE DAYROOM. HE TOOK HIS HS MEDICATIONS WITHOUT ANY DIFFICULTY, HE TOOK THEM WHOLE. THE PT GOT UP ONCE TO USE THE BATHROOM AND THEN WENT BACK TO BED. HE HAS NOT BEEN AGGRESSIVE THIS SHIFT, CALM ET COOPERATIVE. OCCASIONALLY SMILING. REMAINS ON 12 MINUTE CHECKS FOR HIS SAFETY.
--- NOTE | 2019-07-18 02:52 | NUR ---
THE PT APPEARS TO BE RESTING QUIETLY IN BED AT THIS TIME. RESP., EVEN, AND UNLABORED. REMAINS ON 12 MINUTE CHECKS FOR HIS SAFETY.
[2019-07-18 08:53] VITALS: BP 108/49; BP 130/84
--- NOTE | 2019-07-18 11:58 | NUR ---
PATIENT IS ORIENTED TO SELF AND ABLE TO INDEPENDENTLY AMBULATE AND TAKE HIMSELF TO BATHROOM. SPOUSE VISITING PATIENT THIS AM AND INTERACTING AND APPROPRIATELY AFFECTIONATE TOWARDS PATIENT. SPOUSE, KEARA, REQUESTED INFORMATION ABOUT LAB RESULTS FROM YESTERDAY. SHE INDICATED HIS CREATINE HAS BEEN A LITTLE BIT HIGH. PATIENT SPENDS MOST OF HIS TIME IN DAY ROOM SITTING IN CHAIR AND DOESN'T INTERACT MUCH WITH STAFF OR PATIENTS UNLESS OTHERS INITIATE INTERACTION. PATIENT APPEARS TO BE SLEEPING WITH HEAD DOWN IN CHAIR MOST OF THE DAY.
--- NOTE | 2019-07-18 15:01 | NUR ---
CREATINE LEVEL ELEVATED. PER WARREN, ENCOURAGE FLUIDS. PATIENT IS DEHYDRATED.
[2019-07-18 20:15] VITALS: BP 167/87
--- NOTE | 2019-07-19 06:01 | NUR ---
1909-Report received from day shift nurse and care assumed. Alexi was walking around the day area and two times found lying in another empty bed other then his. He sat in the day room also and was compliant with VS and HS snack. When HS meds. were taken to him he looked at them and said "I had those already". He was talked with further and he said No. He was explained that the DrPenny ordered a shot be given to him if he refused the "2 white ones" (Olanzapine) and he thought a second and then took those two. He went to bed and awakened to urinate in the toilet a couple times in the night, he was cooperative with cares and said "thank you" for extra blanket and helping him.
--- NOTE | 2019-07-19 16:04 | NUR ---
0708 Report given by overnight shift, patient ate breakfast and took medication without incidence. Patient attended group minimal participation. Patient had visit from and the visit went well. Patient's asked for medication information. Patient ambulates well is calm cooperative.
--- NOTE | 2019-07-19 16:11 | NUR ---
SW sent referral to [facility] , and spoke with pt's spouse.
[2019-07-19 16:22] VITALS: BP 129/80
[2019-07-19 20:16] VITALS: BP 141/74
--- NOTE | 2019-07-19 23:15 | NUR ---
PT ASLEEP IN BED UPON ARRIVAL TO SHIFT. PT COMPLIANT WITH HS MEDS. PT DID NOT HAVE SNACK NO HS INSULIN GIVEN. PT UNSTEADY WITH AMBULATION TO RESTROOM AND PT INCONTINENT. PT SMILING [facility] CONTACT, COMPLIANT [facility] AD[facility] CARES.
[2019-07-20 08:55] VITALS: BP 145/64
--- NOTE | 2019-07-20 10:48 | NUR ---
Date of Admission: 06/28/19 Date of Activity Therapy Assessment: 07/01/19 Activity Goal: One group activity or 1:1 per day Initial Goal: Decrease restlessness and wandering Weekly progress towards goal: On track Group participation level: Varies Behaviors observed: Patient participation continues to vary based on attention level. Patient's wandering is easier to redirect since last progress entry date. Patient does show an increase in drowsiness during groups which may be a contributing factor to patients decrease in wandering behaviors. Plan: No change towards goal
--- NOTE | 2019-07-20 13:05 | NUR ---
0705 Report received from overnight shift, patient ate breakfast took medication without incidence. Patient had 2 visitors, his and another nurse from his new facility he will dischsrge to. Patient is calm quiet does not really participate in groups. No aggression.
--- NOTE | 2019-07-20 15:44 | NUR ---
SW spoke with [facility] as they evaluated this pt today. They have accepted him and may d/c on Wednesday.
[2019-07-20 21:08] VITALS: BP 133/67
--- NOTE | 2019-07-20 23:05 | NUR ---
PT PACING IN DAY ROOM, MOVING FURNITURE, CRAWLING ON FLOOR, ATTEMPTING TO PLUG IN VS MACHINE INTO COUCH, TAKING OFF PANTS. PT AT TIMES HAS HEAD HELD HIGH WITH [facility] CONTACT OTHER TIMES PT IS WALKING WITH HEAD TILTED DOWN AND EYES CLOSED AT TIME. PT AFFECT SMILING TO BLUNTED. PT COMPLIANT WITH HS MEDS, DECLINED SNACK, NO HS INSULIN PROVIDED SINCE NO FOOD INTAKE. PT REMAINS INCONTINENT. GAIT STEADY. COMPLIANT WITH [facility] CARES AND REDIRECTIONS.
[2019-07-21 05:32] LABS: ABSOLUTE NEUTROPHILS 7.5 thou/uL (1.4-8.2); BASOPHILS 0.7 % (0.0-2.0); EOSINOPHILS 1.4 % (0.0-3.0); HEMATOCRIT 41.1 % (42.0-52.0); HEMOGLOBIN 13.5 gm/dL (14.0-18.0); LYMPHOCYTES 9.3 % (24.0-44.0); MCH 31.4 pg (26.0-34.0); MCHC 32.8 g/dL (28.0-37.0); MCV 95.7 fL (80.0-100.0); MONOCYTES 10.9 % (1.0-8.0); PLATELET COUNT 259 thou/uL (150-400); POLYS 77.7 % (36.0-66.0); RDW 13.4 % (10.5-14.5); WBC 9.6 thou/uL (4.0-11.0)
[2019-07-21 05:36] LABS: CALCIUM 9.1 mg/dL (8.5-10.1); CREATININE 1.6 mg/dL (0.7-1.3); MAGNESIUM 1.9 mg/dL (1.8-2.4); POTASSIUM 3.6 mmol/L (3.5-5.1)
[2019-07-21 08:10] VITALS: BP 115/63
--- NOTE | 2019-07-21 16:00 | NUR ---
SW sent updates to [facility] and spoke with pt's spouse. He has been accepted at [facility] and will d/c there on Wednesday.
--- NOTE | 2019-07-21 18:36 | NUR ---
Up ambulating in unit without s/o distress. Attempting to comfort other patients. Rambling speech at times, orientated to self only. No verbalizations of SI/HI or pain. Breath sounds clear t/o, bilaterally equal. Color pink with brisk capillary refill. Active bowel sounds over soft, flat abdomen. Continent at times but often incontinent. called to check on him.
[2019-07-21 19:45] VITALS: BP 129/100
--- NOTE | 2019-07-21 23:58 | NUR ---
Care assumed of patient at 1915: Patient alert and oriented to person. Patient confused and forgetful. Patient wandering about the unit, day room and any room that is open. Patient attempting to open all locked doors. Patient restless and impulsive but is directable. Patient ate 100% snack. Patient incontinent of bladder and needed assist with changing his brief and pants. Melba care provided. Patient took most of his HS medication whole. Patient had difficulty swallowing one of the Depakote pills and Calcium capsule. He spit the pills out saying "I just can't do those". Due to history of declining medications, this was rather successful for this patient. No s/s of AH/VH, delusional or paranoia behaviors. Denies pain and discomfort. No aggression or agitation observed this shift. Patient had difficulty calming down and laying down this evening. Once he was able to lay down, patient fell asleep without any difficulty and has been resting quietly.
[2019-07-22 07:33] VITALS: BP 105/67
--- NOTE | 2019-07-22 12:32 | NUR ---
0703 Received report from overnight shift, patient quiet ambulates well. Patient ate breakfast and took medication without incidence. Patient had visitor from , the visit went well. Patient does not participate in group but does attend.
[2019-07-22 19:54] VITALS: BP 124/59
--- NOTE | 2019-07-22 23:01 | NUR ---
ASSUMED CARE OF THE PT AT 191 PM. ALERT ET CONFUSED AT TIMES. WALKS AROUND THE UNIT, GOES INTO OTHER PT'S ROOMS. HAS TO BE REDIRECTED SEVERAL TIMES. WALKS WITH A STEADY GAIT. TOOK HIS HS MEDICATIONS WITHOUT ANY DIFFICULY. DENIES ANXIETY, DEPRESSION, SI/HI/A/V HALLUNICATIONS. REMAINS ON 12 MINUTE CHECKS FOR HIS SAFETY.
--- NOTE | 2019-07-23 03:42 | NUR ---
THE PT DID GET UP ONCE TO GO TO THE BATHROOM AND THEN HE WAS ASSISTED BACK TO BED. REMAINS ON 12 MINUTE CHECKS FOR HIS SAFETY.
--- NOTE | 2019-07-23 03:46 | NUR ---
THE PT TO BE SLEEPING AT THIS TIME. REMAINS ON 12 MINUTE CHECKS FOR HIS SAFETY.
--- NOTE | 2019-07-23 05:37 | NUR ---
THE PT SLEPT 7.4 HOURS LAST NIGHT.
[2019-07-23 06:02] LABS: HEMATOCRIT 41.4 % (42.0-52.0); HEMOGLOBIN 13.5 gm/dL (14.0-18.0); MCH 31.5 pg (26.0-34.0); MCHC 32.6 g/dL (28.0-37.0); MCV 96.4 fL (80.0-100.0); PLATELET COUNT 295 thou/uL (150-400); RBC 4.29 mil/uL (4.50-6.00); RDW 13.6 % (10.5-14.5); WBC 7.9 thou/uL (4.0-11.0)
[2019-07-23 06:19] LABS: ALBUMIN 2.9 g/dL (3.4-5.0); CALCIUM 8.9 mg/dL (8.5-10.1); CREATININE 1.6 mg/dL (0.7-1.3); POTASSIUM 3.8 mmol/L (3.5-5.1); TOTAL BILIRUBIN 0.5 mg/dL (<0.1-1.0); TOTAL PROTEIN 6.8 g/dL (6.4-8.2)
[2019-07-23 07:49] VITALS: BP 132/69
[2019-07-23 08:47] LABS: ABSOLUTE NEUTROPHILS 5.2 thou/uL (1.4-8.2); ANISOCYTOSIS SLIGHT
--- NOTE | 2019-07-23 19:02 | NUR ---
Up ambulating in halls t/o day. Confused speech, unable to assess SI/HI. Obeys simple commands. Color pink with brisk capillary refill and palpable peripheral pulses. Regular HR. Breath sounds clear t/o, bilaterally equal. Active bowel sounds over soft, rounded abdomen. Miralax given for no stool since 07/18. 1800 Spontaneously sitting on floor with increased ambulation and putting feet on chairs. Dr. Salgado notified. 5mg Olanzapine given PO with container of yogurt. Currently sitting on chair quietly.
[2019-07-23 19:49] VITALS: BP 132/71
--- NOTE | 2019-07-23 22:11 | NUR ---
ASSUMED CARE OF THE PT AT 191 PM. ALERT ET CONFUSED AT TIMES. THE PT WAS WALKING AROUND THE UNIT, WHEN THIS VOCATIONAL DIRECTOR FIRST CAME ON DUTY. THE PT TOOK HIS HS MEDICATIONS WITHOUT ANY DIFFICULTY. HE TOOK THEM WHOLE. UNABLE TO ASSESS IF HE HAS ANY ANXIETY OR DEPRESSION OR SI/HI/A/V HALLUNICATIONS. REMAINS ON 12 MINUTE CHECKS FOR HIS SAFETY.
--- NOTE | 2019-07-24 01:48 | NUR ---
THE APPEARS TO BE RESTING QUIETLY IN BED AT THIS TIME. REMAINS ON 12 MINUTE CHECKS FOR HIS SAFETY.
--- NOTE | 2019-07-24 05:03 | NUR ---
the pt slept 10 hours last night.
[2019-07-24 09:25] VITALS: BP 122/71
[2019-07-24] MEDS ORDERED: DIVALPROEX SOD500 M1 PO (13:33)
[2019-07-24] MEDS ORDERED: DEPAKOTE ER250 MG PO (13:34)
[2019-07-24] MEDS ORDERED: ZYPREXA 5 MG TAB5 M1 PO ×2 (13:35→13:36)
[2019-07-24] MEDS ORDERED: CALCIUM ACETAT667 MG PO (13:37)
[2019-07-24] MEDS ORDERED: SENNA-TIME S T1 EACH PO (13:37)
[2019-07-24] MEDS ORDERED: PEPCID20 MG PO (13:37)
[2019-07-24] MEDS ORDERED: HUMALOG100 UNIT/1 SUBQ (13:39)
[2019-07-24] MEDS ORDERED: LANTUS SUBQ (13:39)
[2019-07-24] MEDS ORDERED: VITAMIN D5000 UNIT PO (13:41)
--- NOTE | 2019-07-24 14:01 | NUR ---
REPORT CALLED TO [facility] AND GIVEN TO BON RN- KEARA PEARSON DPOA CONTACTED VIA PHONE AND DC PAPERWORK REVIEWED VIA PHONE INCLUDING MEDS,DX,FU INSTRUCTIONS AND MEDICARE DC PAPERWORK EXPLAINED-REVIEWED. PT DISCHARGED FROM UNIT VIA WHEELCHAIR ACCOMPNIED BY TRANSPORT STAFF FROM [facility]-CONFUSED BUT ALERT AT TIME OF DC
--- NOTE | 2019-07-27 22:21 | D ---
[facility] [place] [address] DISCHARGE SUMMARY Name: SAMANTA PEARSON Shala Room #: 522B-B [facility] IN M.R.#: [id number] Admission: 06/28/19 Attend Phys: Power Salgado DO Discharge: 07/24/19 Date of : 38 Report #: [id number] THIS REPORT FOR: //name// CC: Power Salgado Cody Francis DATE OF SERVICE: 07/24/2019 INPATIENT PSYCHIATRIC DISCHARGE SUMMARY ATTENDING PHYSICIAN: Power Salgado DO EDUCATIONAL RESOURCE COORDINATOR AT THE TIME OF DISCHARGE: Power Vieyra MD DISCHARGE DIAGNOSES: As follows: Major neurocognitive disorder, likely due to Alzheimer disease with behavioral disturbance, improved. MEDICAL COMORBIDITIES AT THE TIME OF DIAGNOSIS: Anemia, hemoglobin stable. Diabetes mellitus type 2. GFR 36. On insulin. Vitamin B12 deficiency, supplemented, goal is to keep level above 600, hypertension, but avoid hypotension, hyperlipidemia, CKD stage 3, avoid nephrotoxic agents, constipation, given MiraLax and Dulcolax. The patient is incapacitated as well. DISCHARGE PLAN: He is discharging to the [facility]. Medical and psychiatric services to be provided by that facility. DISCHARGE MEDICATIONS: As follows: Depakote ER 1250 mg p.o. at bedtime, olanzapine 10 mg p.o. b.i.d. and 5 mg p.o. q. 6 p.r.n., calcium acetate 667 mg p.o. b.i.d., senna-S 2 tabs p.o. b.i.d., famotidine 10 mg p.o. at bedtime, insulin glargine 10 units subcutaneous with dinner. Insulin lispro 8 units subcutaneous at breakfast, cholecalciferol, vitamin D 5000 international units p.o. daily, aspirin 81 mg p.o. daily. It looks like we will leave the oral B12, could be started at the nursing facility 1000 mcg per day. Regular diet for him, to avoid malnutrition. He is on the frail side and this control his blood sugars with insulin. REASON FOR ADMISSION: As follows: Back on 06/28/2019, he was brought to the Emergency Room for medical clearance. He had been throwing objects with physical threats. He had been in another nursing facility and [facility] HOSPITAL COURSE: The patient was initially quite combative at times, so it took us a while to get a medication regimen in place to combat adverse behaviors. His Depakote level at the time of discharge was 66 on 07/17/2019. Other laboratories on 07/23/2019, labs H and H 13.5 and 41.4, white count 7.9, platelets 295. [address] [address] DISCHARGE SUMMARY Name: SAMANTA PEARSON Room #: 522B-B [facility] IN M.R.#: [id number] Admission: 06/28/19 Attend Phys: Power Salgado DO Discharge: 07/24/19 Date of : 38 Report #: [id number] Chemistries from 07/23/2019, sodium 144, potassium 3.8, chloride 105, bicarbonate 32, anion gap 7, BUN 31, creatinine 1.6, which is baseline, GFR 42, which is a good GFR for him. Glucose ranging in the mid-100s. His hemoglobin A1c was 8.9. Vitamin B12 of 394. TSH 1.578. As stated, it was slow for medications to take effect, but the patient became redirectable, calmer. One side effect of medication is he is psychomotorically much slower. This was discussed with the , but unfortunately necessary given his dementia. PHYSICAL EXAMINATION: VITAL SIGNS: At time of discharge, temperature 36.9, pulse 86, respirations 18, BP 122/71, O2 sat 97%. MENTAL STATUS EXAMINATION: This is a well-developed, fairly nourished male wearing glasses, but disheveled appearing stated age, good tall stature. Attention limited. Concentration limited. Speech slowed. Thought process linear and limited. Thought content, relative poverty of thought. Some psychomotor retardation. No psychomotor agitation. Denied SI or HI. Denied hopelessness, helplessness. Denied homicidal intent or plan. Memory noted to be impaired. Insight limited. Judgment impaired. Fund of knowledge well below average. PROGNOSIS: For this patient is guarded. I have asked the to keep me apprised of how he does at his nursing facility ____ to get some feedback there. <ELECTRONICALLY SIGNED> By: Power Salgado DO 07/27/19 [id number] Pwoer Salgado DO /nt
== END 2019-07-24 14:00 | DRG 57 ==
LOC: ER 14:36 → EROBS 17:08 → SBH 17:08
PROVIDERS: Emergency Medicine Emergency Medical Services; Internal Medicine; Nurse Practitioner; ADMIT Psychiatry & Neurology Psychiatry
DX: G30.9 Alzheimer's disease, unspecified (principal); F02.81 Dementia in other diseases classified elsewhere, unspecified severity, with behavioral disturbance; N17.9 Acute kidney failure, unspecified; E11.22 Type 2 diabetes mellitus with diabetic chronic kidney disease; Z66 Do not resuscitate; N18.3 Chronic kidney disease, stage 3 (moderate); I12.9 Hypertensive chronic kidney disease with stage 1 through stage 4 chronic kidney disease, or unspecified chronic kidney disease; D64.9 Anemia, unspecified; E53.8 Deficiency of other specified B group vitamins; I95.9 Hypotension, unspecified; K59.00 Constipation, unspecified; E78.5 Hyperlipidemia, unspecified; F32.9 Major depressive disorder, single episode, unspecified; N40.0 Benign prostatic hyperplasia without lower urinary tract symptoms; Z86.010 Personal history of colon polyps; Z90.49 Acquired absence of other specified parts of digestive tract; Z87.440 Personal history of urinary (tract) infections; Z79.899 Other long term (current) drug therapy; Z82.3 Family history of stroke; Z82.49 Family history of ischemic heart disease and other diseases of the circulatory system
CPT/HCPCS: 10880